=== PATIENT | female | born 1975 | race Caucasian/White ===

== ENCOUNTER 2017-08-26 10:09 | Emergency (ER) | payer MEDICAID ==
[2017-08-26 12:20] LABS: BASOPHIL % 0.2 % (0-2); PLATELET COUNT 214 x10^3mcL (130-400); RED CELL DISTRIBUTION WIDTH 13.7 % (11.5-14.5)
[2017-08-26 12:47] VITALS: BP 115/68
== END 2017-08-26 12:47 | disposition home or self-care (01) ==
LOC: ED 10:09
PROVIDERS: Emergency Medicine
DX: Z3A.01 Less than 8 weeks gestation of pregnancy (principal); O20.0 Threatened abortion; Z90.49 Acquired absence of other specified parts of digestive tract
CPT/HCPCS: 36415